=== PATIENT | female | born 2000 | race Hispanic/Latino ===

== ENCOUNTER 2018-05-13 20:44 | Emergency (ER) | payer OTHER, SELFPAY ==
--- NOTE | 2018-05-13 22:06 | RAD ---
PA AND LATERAL CHEST X-RAY: 05/13/18 HISTORY: Chest pain and back pain. Pain mainly with inspiration. FINDINGS: The cardiac silhouette and pulmonary vasculature are within normal limits. The lungs are clear. [place] us structures are intact. IMPRESSION: No acute cardiopulmonary process. POS: [facility]
== END 2018-05-13 22:34 | disposition home or self-care (01) ==
LOC: ERS 20:44
DX: M94.0 Chondrocostal junction syndrome [Tietze] (principal)
CPT/HCPCS: 71046; 93005

== ENCOUNTER 2018-09-08 14:56 | Outpatient (CLI) | payer OTHER ==
--- NOTE | 2018-09-08 16:16 | ULT ---
OBSTETRIC SONOGRAM: HISTORY: Second trimester gestation. evaluation. FINDINGS: Multiple transabdominal sonographic views of the gravid uterus show a single intrauterine gestation, in cephalic presentation. The cervix is closed and 3.3 cm. No gross intracranial abnormalities. Gr mina 0 placenta is posterior. Amniotic fluid is within normal limits. Four-chamber heart shows motio n at 165 beats per minute. spine and kidneys are intact, as visualized. Three-vessel cord frank ws a normal insertion. Measurements are as follow: BIPARIETAL DIAMETER: 20 weeks 6 days. HEAD CIRCUMFERENCE: 21 weeks 1 day. ABDOMINAL CIRCUMFERENCE: 21 weeks 1 day. FEMUR LENGTH: 21 weeks 0 days. Estimated date of delivery based on today's sonogram is 01/18/2019. [place] 9th percentile. IMPRESSION: Single viable intrauterine gestation with estimated gestational age based on today's sonogram of 21 w eeks 1 day. POS: [facility]
== END 2018-09-08 14:57 | disposition home or self-care (01) ==
LOC: BICULT 14:56
PROVIDERS: ATTEND Family Medicine
DX: Z34.82 Encounter for supervision of other normal pregnancy, second trimester (principal); Z3A.21 21 weeks gestation of pregnancy
CPT/HCPCS: 76805

== ENCOUNTER 2018-09-27 15:30 | Day surgery (SDC) | payer OTHER ==
[2018-09-27 16:01] VITALS: BP 107/62; TEMP 98.9
[2018-09-27 16:04] VITALS: BMI 28.7
--- NOTE | 2018-09-27 16:55 | PRG ---
DATE OF SERVICE: 09/27/2018 TIME OF SERVICE: 1615. PRESENTING COMPLAINT: Lower abdominal pressure and mild right-sided rib pain 48 to 72 hours, status post fall. HISTORY OF PRESENT ILLNESS: Ms. Morgan is a 17-year-old 2, para 1, at 24 weeks gestation by stated MARLENY. Antepartum record is not available on the unit. She reports that early on Friday, she fell and landed on her side without impacting her abdomen. She states she has some mild rib pain. She denies vaginal bleeding. She reports an active fetus. She reports mild suprapubic pressure at times. The patient reports she has had uncomplicated . 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 MEDICAL HISTORY: None. PAST SURGICAL HISTORY: Appendectomy. MEDICATIONS: vitamins. ALLERGIES: PENICILLIN. SOCIAL HISTORY: Denies tobacco, alcohol, or drug use. FAMILY HISTORY: Noncontributory. REVIEW OF SYSTEMS: Noncontributory. PHYSICAL EXAMINATION: GENERAL: female, in no acute distress. VITAL SIGNS: Blood pressure 110/72, pulse 85, respirations 18, temperature 98.6. HEENT: Within normal limits. LUNGS: Clear to auscultation bilaterally. HEART: Regular rate and rhythm. ABDOMEN: Soft and nontender. She has mild tenderness over the area of her ribs on her right, but no ecchymosis or bruising is noted. No CVA tenderness is noted. FHTs 140s. GENITALIA: Vulva without lesions. Vagina, discharge. Cervix, closed, long and high posterior. EXTREMITIES: No clubbing, cyanosis, or edema. heart rate tracing for greater than 20 minutes was carried out. One episode of uterine irritability was noted without palpable contraction. FHTs are 140s to 150s, positive acceleration, no deceleration and reactive strip would be anticipated at 24 weeks gestation. IMPRESSION: Discomforts of . No evidence of abruption. Status post fall. No evidence of labor. PLAN: Discharge home. Keep scheduled followup with Dr. Soni and CHERYL guillermo. Job ID: [id number]
== END 2018-09-27 16:28 | disposition home or self-care (01) ==
LOC: L&D/OP 15:30
PROVIDERS: ATTEND Family Medicine
DX: O99.89 Other specified diseases and conditions complicating pregnancy, childbirth and the puerperium (principal); R10.30 Lower abdominal pain, unspecified; R07.81 Pleurodynia; Z3A.24 24 weeks gestation of pregnancy; Z79.899 Other long term (current) drug therapy; Z88.0 Allergy status to penicillin; W19.XXXA Unspecified fall, initial encounter
CPT/HCPCS: 99282

== ENCOUNTER 2018-11-12 12:48 | Day surgery (SDC) | payer OTHER ==
[2018-11-12 13:43] VITALS: BMI 30.2
[2018-11-12 15:22] LABS: Bilirubin Negative (Negative); Blood, Urine Negative (Negative); Clarity CLEAR (Clear); Glucose, Urine (Dipstick) Negative (Negative); Leukocyte Negative (Negative); Nitrite Negative (Negative); Protein, Urine (Dipstick) Negative (Neg-Trace); pH, Urine 7.5 (5.0-9.0)
[2018-11-12 15:28] LABS: Bacteria/HPF None Seen HPF (None Seen); Hyaline Casts/LPF 0-3 HYALINE CAST LPF (0-3 Hyaline); Pathc Cast-AUWi Flag 0.13 (0-2.49); Squamous Epithelial 0-3 HPF (0-3); WBC/HPF 0-3 HPF (0-3)
--- NOTE | 2018-11-12 17:37 | PRG ---
DATE OF SERVICE: 11/12/2018 PRIMARY OB: Michael Soni MD CHIEF COMPLAINT: Abdominal pain. HISTORY OF PRESENT ILLNESS: The patient is a 18-year-old, G2, P1 female with an intrauterine at 31 weeks and 2 days, who is presenting with a 2-month history of abdominal pain that had worsened in the last few hours. The patient reports that the pain is worse with movement and activity such as getting out of bed and picking up her daughter. She reports as being in her lower pelvis bilaterally. She reports that since coming to the hospital, she has noticed some contractions, but is not the main reason for her presentation. The patient denies any change in discharge. She denies intercourse in the last few days. She denies any falls, any recent illness, or diarrhea. The patient denies fever, headache, chest pain, does report some difficulty taking deep breath with the . Reports some nausea. Denies vomiting. Denies constipation or diarrhea. Denies any new rashes, hip problems, knee problems, or muscle weakness. Denies vaginal bleeding or change in discharge. Denies urinary urgency or frequency. PAST MEDICAL HISTORY: Negative. PAST SURGICAL HISTORY: Negative. ALLERGIES: NO KNOWN DRUG ALLERGIES. SOCIAL HISTORY: Denies drug, alcohol, or tobacco use. PAST SURGICAL HISTORY: Appendectomy. ALLERGIES: PENICILLIN. OB LABS: Unavailable at time of discharge. REVIEW OF SYSTEMS: Per HPI, a 12-point review of systems was reviewed and pertinent positives are present there. PHYSICAL EXAMINATION: VITAL SIGNS: Blood pressure 101/64, heart rate of 86, respiratory rate of 16, saturating 98% on room air, temperature 98.7. GENERAL: She appears to be in no acute distress. She is alert, oriented, cooperative, and pleasant to interact with. HEAD: Normocephalic, atraumatic. LUNGS: Clear to auscultation bilaterally. HEART: Has regular rate and rhythm. ABDOMEN: Soft. She does have some mild tenderness to deviation of the uterus to the right in her lower pelvis, less so on her left. She has no CVA tenderness. Some mild SI tenderness on the left. EXTREMITIES: Nontender with mild edema. : Cervix is closed, thick, and high. DIAGNOSTIC DATA: heart tracing and NST performed for abdominal pain and baseline is noted to be in the 130s with moderate long-term variability with positive 15 x 15 accelerations, no decelerations. Tocometer shows some possible irritability with a single contraction present over approximately 2 hours. Urinalysis, negative for nitrites, negative for leukocyte esterase, negative for white blood cells, negative for squamous cells, negative for bacteria. ASSESSMENT AND PLAN: The patient is a 18-year-old female with an intrauterine at 31 weeks and 2 days, likely experiencing musculoskeletal pain of that have exacerbated in the last couple of hours. The patient does have a young child at home that she regularly carries and has responsibilities that likely are contributing to her discomfort. Reassurance has been given to the patient that while she may feel discomfort from this, she should not be worried about this as evidence of her going into labor. The patient's baby has a reactive NST and reassuring category 1 tracing. The patient is being discharged to home with instructions to follow up with her primary OB as scheduled. Job ID: [id number]
== END 2018-11-12 16:00 | disposition home or self-care (01) ==
LOC: L&D/OP 12:48
PROVIDERS: ATTEND Family Medicine
DX: O99.89 Other specified diseases and conditions complicating pregnancy, childbirth and the puerperium (principal); R10.9 Unspecified abdominal pain; Z3A.31 31 weeks gestation of pregnancy; Z88.0 Allergy status to penicillin
CPT/HCPCS: 81001; 99283

== ENCOUNTER 2019-01-07 19:15 | Inpatient (IN) | payer OTHER ==
[2019-01-07] MEDS ORDERED: Methylergonovine 0.2 MG/ML VIAL IM PRN (21:05)
[2019-01-07] MEDS ORDERED: HYDROcodone/Acetaminophen 5/325 mg Tablet PO PRN (21:05)
[2019-01-07] MEDS ORDERED: Diphenoxylate HCl/Atropine Tablet PO PRN (21:05)
[2019-01-07] MEDS ORDERED: Ondansetron PF 4 MG/2 ML Vial IVP PRN (21:05)
[2019-01-07] MEDS ORDERED: hydrALAZINE 20 MG/ML VIAL SLOW IVP PRN (21:05)
[2019-01-07] MEDS ORDERED: Lidocaine 1% (PF) 30 ML VIAL SC PRN (21:05)
[2019-01-07] MEDS ORDERED: Ibuprofen 800 MG TAB PO PRN (21:05)
[2019-01-07] MEDS ORDERED: NS / Oxytocin 40 units/1000ml 1,000 ML IV PRN (21:05)
[2019-01-07] MEDS ORDERED: Carboprost 250 MCG/ML AMP IM PRN (21:05)
[2019-01-07] MEDS ORDERED: Promethazine HCl 25 MG/ML VIAL IM PRN (21:05)
[2019-01-07] MEDS ORDERED: Butorphanol Tartrate 1 MG/ML VIAL SLOW IVP PRN (21:05)
[2019-01-07] MEDS ORDERED: Misoprostol 200 MCG TAB PR PRN (21:05)
[2019-01-07] MEDS ORDERED: CEFAZOLIN 2 GM in Premix Bag 1 BAG IVPB SCH (21:15)
[2019-01-07 21:23] VITALS: BMI 31.4
[2019-01-07] MEDS ORDERED: NS w/ Oxytocin 10 units 500 ML IV SCH (21:30)
[2019-01-07] MEDS: Lactated Ringer's 1,000 ML IV SCH (21:30)
[2019-01-07 21:45] LABS: Hemoglobin 10.6 g/dL (12.0-16.0); Mean Corpuscular Hemoglobin 26.9 pg (25.0-35.0); Mean Corpuscular Volume 79.2 fL (78.0-98.0); Mean Platelet Volume 7.9 fL (7.4-10.4); Platelet Count 294 thou/uL (130-400); Red Blood Cell (RBC) Count 3.95 mill/uL (4.00-5.20); White Blood Cell (WBC) Count 10.3 thou/uL (4.8-10.8)
[2019-01-07 23:35] LABS: Syphilis Antibody Nonreactive (Nonreactive); Syphilis Antibody Index 0.03 S/CO (<1.00 Non-Reactive)
[2019-01-08 00:02] LABS: HBSAg Index 0.23 S/CO (0-0.99); Hep B Surf Ag Non-Reactive S/CO (NonReactive)
[2019-01-08] MEDS: NS w/ Oxytocin 10 units 500 ML IV SCH ×2 (00:28→10:01)
[2019-01-08] MEDS: Misoprostol 100 MCG TAB PO SCH ×2 (00:29→04:30)
[2019-01-08] MEDS: Lactated Ringer's 1,000 ML IV SCH ×2 (05:21→09:30)
[2019-01-08] MEDS ORDERED: ceFAZolin 1 GM/D5W 1 GM in Premix Bag 1 BAG IVPB SCH (06:00)
[2019-01-08] MEDS ORDERED: CEFAZOLIN 1 GM in Sodium Chloride 0.9% 100 ML IVPB SCH (06:00)
[2019-01-08] MEDS ORDERED: Fentanyl 4 mcg/Bup 0.1% Cadd 100 ML ONE (08:17)
[2019-01-08] MEDS ORDERED: Promethazine HCl 25 MG/ML VIAL IM PRN ×2 (09:31→14:54)
[2019-01-08] MEDS ORDERED: Naloxone HCl 0.4 mg/ml Vial IVP PRN ×2 (09:31)
[2019-01-08] MEDS ORDERED: diphenhydrAMINE 50 MG/ML VIAL IVP PRN (09:31)
[2019-01-08] MEDS ORDERED: Lactated Ringer's 500 ML IV PRN (09:31)
[2019-01-08] MEDS ORDERED: Ondansetron PF 4 MG/2 ML Vial IVP PRN ×2 (09:31→14:54)
[2019-01-08] MEDS ORDERED: ePHEDrine/0.9% NaCl/PF SYRINGE 50 mg/10 ml SLOW IVP PRN (09:31)
[2019-01-08] MEDS ORDERED: Acetaminophen 325 MG TAB PO PRN (09:31)
[2019-01-08] MEDS ORDERED: Fentanyl 4 mcg/Bupivacaine 0.1% Cassette 100 ML EPIDURAL SCH (09:45)
[2019-01-08] MEDS ORDERED: Communication Order-Pharmacy FS SCH (09:45)
[2019-01-08] MEDS ORDERED: HYDROcodone/Acetaminophen 5/325 mg Tablet PO PRN ×2 (14:54)
[2019-01-08] MEDS ORDERED: Bisacodyl 10 MG SUPP PR PRN (14:54)
[2019-01-08] MEDS ORDERED: Benzocaine-Menthol 82.5 ML CAN TOP PRN (14:54)
[2019-01-08] MEDS ORDERED: Milk Of Magnesia 30 ML UDCUP PO PRN (14:54)
[2019-01-08] MEDS ORDERED: hydrALAZINE 20 MG/ML VIAL SLOW IVP PRN (14:54)
[2019-01-08] MEDS ORDERED: Lanolin Ointment 7 GM TUBE TOP PRN (14:54)
[2019-01-08] MEDS ORDERED: diphenhydrAMINE 25 MG CAP PO PRN (14:54)
[2019-01-08] MEDS ORDERED: NS / Oxytocin 40 units/1000ml 1,000 ML IV SCH (14:54)
[2019-01-08] MEDS ORDERED: NS / Oxytocin 40 units/1000ml 1,000 ML ONE (14:56)
[2019-01-08] MEDS: Ibuprofen 800 MG TAB PO SCH (16:12)
[2019-01-08] MEDS: Ferrous Sulfate 325 MG TAB PO SCH (18:54)
[2019-01-08] MEDS: Docusate Calcium (SURFAK) 240 MG CAP PO SCH (21:34)
[2019-01-09] MEDS: Ibuprofen 800 MG TAB PO SCH ×3 (01:21→13:47)
[2019-01-09 06:31] LABS: Hemoglobin 10.3 g/dL (12.0-16.0); Mean Corpuscular HGB CONC 33.4 g/dL (32.0-36.0); Mean Corpuscular Hemoglobin 26.8 pg (25.0-35.0); Mean Corpuscular Volume 80.1 fL (78.0-98.0); Mean Platelet Volume 8.1 fL (7.4-10.4); Platelet Count 280 thou/uL (130-400); RBC Distribution Width 13.2 % (11.5-14.5); Red Blood Cell (RBC) Count 3.84 mill/uL (4.00-5.20); White Blood Cell (WBC) Count 13.3 thou/uL (4.8-10.8)
[2019-01-09] MEDS ORDERED: Prenatal Vitamin 1 TAB PO SCH (09:00)
[2019-01-09] MEDS: Docusate Calcium (SURFAK) 240 MG CAP PO SCH (09:07)
[2019-01-09] MEDS: Ferrous Sulfate 325 MG TAB PO SCH (09:08)
[2019-01-09 11:31] VITALS: BP 107/72; TEMP 97.7
== END 2019-01-09 16:25 | disposition home or self-care (01) | DRG 807 ==
LOC: L&D 20:38 → 3SW 01-08 15:33
PROVIDERS: ADMIT Family Medicine; ATTEND Family Medicine
PROC: 10E0XZZ Delivery of Products of Conception, External Approach (ICD-10-PCS; principal; 2019-01-08)
PROC: 3E0P7VZ Introduction of Hormone into Female Reproductive, Via Natural or Artificial Opening (ICD-10-PCS; 2019-01-08)
DX: O99.824 Streptococcus B carrier state complicating childbirth (principal); Z37.0 Single live birth; O71.82 Other specified trauma to perineum and vulva; Z3A.39 39 weeks gestation of pregnancy
CPT/HCPCS: 36415; 51702; 85027; 86780; 86850; 86900; 86901; 87340; J0690; J2590; J3490

== ENCOUNTER 2019-01-31 19:03 | Inpatient (IN) | payer OTHER ==
--- NOTE | 2019-01-31 20:02 | RAD ---
1 view chest: CLINICAL HISTORY: Dizzy upon standing COMPARISON: 05/13/2018 FINDINGS: There is no focal consolidation, effusion, or pneumothorax. Cardiac silhouette is normal in size. No acute osseous abnormality. IMPRESSION: No focal consolidation.
[2019-01-31 20:06] LABS: Bacteria/HPF None Seen HPF (None Seen); Bilirubin Negative (Negative); Blood, Urine 2+ (Negative); Clarity Clear (Clear); Glucose, Urine (Dipstick) Normal (Negative); Leukocyte 500 Leu/uL (Negative); Mucous/LPF Rare LPF (<2+); Nitrite Negative (Negative); Protein, Urine (Dipstick) 10 mg/dL (Neg-Trace); Squamous Epithelial 0-3 HPF (0-3)
[2019-01-31] MEDS ORDERED: Ondansetron ODT 4 MG TAB ONE (20:07)
[2019-01-31] MEDS ORDERED: Meclizine HCl 25 MG TAB ONE (20:07)
[2019-01-31 20:26] LABS: #Eosinphils 0.1 thou/uL (0.0-0.7); #Lymphocytes 1.7 thou/uL (1.20-3.40); #Monocytes 0.6 thou/uL (0.11-0.59); #Neutrophils 5.6 thou/uL (1.40-6.50); %Basophils 0.5 % (0.0-1.0); %Eosinophils 1.3 % (0.0-10.0); %Lymphocytes 21.2 % (28.0-48.0); %Monocytes 7.4 % (0.0-4.0); %Neutrophils 69.7 % (31.0-61.0); Hemoglobin 12.1 g/dL (12.0-16.0); Mean Corpuscular HGB CONC 31.9 g/dL (32.0-36.0); Mean Corpuscular Hemoglobin 25.8 pg (25.0-35.0); Mean Corpuscular Volume 80.9 fL (78.0-98.0); Mean Platelet Volume 7.8 fL (7.4-10.4); Platelet Count 309 thou/uL (130-400); RBC Distribution Width 13.1 % (11.5-14.5); Red Blood Cell (RBC) Count 4.67 mill/uL (4.00-5.20)
[2019-01-31 20:35] LABS: BHCG - Serum Negative (NEGATIVE); Pregs Control Background? CLEAR/WHITE (CLR/WHITE); Pregs Control Bar Appear? YES (CONTROL BAR)
[2019-01-31 20:46] LABS: ALT (SGPT) 12 U/L (8-55); AST (SGOT) 20 U/L (5-34); Albumin 4.6 g/dL (3.5-5.0); Alkaline Phosphatase 83 U/L (40-150); Anion Gap 13 mmol/L (10-20); BUN (Urea Nitrogen) 12 mg/dL (7.0-18.7); Bilirubin, Total 0.3 mg/dL (0.2-1.2); Calc. Creatinine Clearance 0 mL/min (70-130); Calcium 9.6 mg/dL (7.8-10.44); Carbon Dioxide 25 mmol/L (22-29); Chloride 104 mmol/L (98-107); Estimated GFR-MDRD Greater than 90; Glucose 77 mg/dL (70-105); Potassium 3.4 mmol/L (3.5-5.1); Protein, Total 7.6 g/dL (6.0-8.3); Sodium 139 mmol/L (136-145)
[2019-01-31] MEDS ORDERED: Promethazine HCl 25 MG/ML VIAL ONE (21:03)
[2019-01-31] MEDS ORDERED: Ondansetron PF 4 MG/2 ML Vial ONE (21:51)
--- NOTE | 2019-01-31 22:59 | CT ---
CT Brain WO Con: 01/31/2019 10:18 PM CLINICAL HISTORY: Nystagmus, dizziness, vomiting. COMPARISON: None. FINDINGS: Hemorrhage: None. Ventricular system: Normal in size and morphology for the patient's age. Cerebral parenchyma: Normal Midline shift: None. Mass: No mass effect. Calvarium: Normal. Visualized Paranasal sinuses: Decreased pneumatization of right mastoid air cells. IMPRESSION: No acute intracranial abnormalities.
--- NOTE | 2019-02-01 00:02 | PDOC.FPRHP ---
- History of Present Illness Chief Complaint: Vertigo, Intractable Vomiting History of Present Illness: The patient is a 18 y/o HF who presents to the ED after ~12 hours of feeling like "the room is spinning". She states that she has difficulty with ambulation and feels unsteady on her feet. She has had continuous nausea during this time and has vomited +7 times. She admits to an unremarkable CRAWFORD on 01/30/19 , but denies any trauma, drug abuse, toxic exposures, recent travel, sick contacts or anyone else at home who has similar symptoms. Her symtoms are relieved by nothing. ED Course: The patient received 2 L of NS, 4 mg Zofran x2, Meclizine 25 mg, and IM Phenergan 25 mg in the ED. A Duane-Hallpike Maneuver was initially negative, but the patient subsequently developed vertical nystagmus at rest, prompting a Head CT scan which was negative. - Allergies/Adverse Reactions Allergies Allergy/AdvReac Type Severity Reaction Status Date / Time Penicillins Allergy Mild Rash Verified 01/07/19 21:17 - History PMHx: 2 PSHx: Appendectomy, Unspecified ABD Surgery for Ovarian Torsion FHx: None Social: Denies EtOH, Tobacco, and Drug Abuse - Review of Systems General: denies: fever/chills, weight/appetite/sleep changes, night sweats, fatigue Eyes: denies: vision changes Respiratory: denies: cough, shortness of breath Cardiovascular: denies: chest pain Gastrointestinal: reports: nausea, vomiting. denies: diarrhea, abdominal pain Genitourinary: denies: dysuria, discharge Neurological: reports: other (Unremarkable Headache on 01/30/19). denies: syncope, weakness Psychological: reports: other (Denies Suicidal / Homicidal Ideation) - Vital signs BP: [110/69] HR: [54] RR: [16] Tmax: [97.9] Pox: [99]% on [Room] Wt: [63 kg] - Physical Exam Constitutional: NAD, awake, alert and oriented HEENT: normocephalic and atraumatic, PERRLA, EOMI, conjunctiva clear, no scleral icterus, grossly normal vision, TM's clear and intact (Cone of Light visible anteriorly and inferiorly bilaterally), grossly normal hearing, MMM, other (Vertical Nystagmus at rest) -HEENT: Vertical Nystagmus at Rest Neck: supple, FROM, trachea midline, no LAD, no thyromegaly Chest: no-tender to palpation Heart: RRR, normal S1/S2, no murmurs/rubs/gallops, pulses present (+2 Pulses at Radial Artery (bilaterally)) Lungs: CTAB, no respiratory distress, good air movement, no rales/rhonchi, no wheezing, no retractions Musculoskeletal: normal structure, ROM grossly normal Neurological: no focal deficit, CN II-XII intact, normal sensation, other (5/5 Strength in all extremities. Good customer account representative bilaterally. Patient admits to tingling in RLE and had difficulty w/ [id number] Test. (-)Pronator Drift, (-) Dysdiadokinesia and (-)Babinski.) Skin: no rash/lesions, capillary refill <2 seconds, no jaundice Heme/Lymphatic: no unusual bruising or bleeding, no purpura, no LAD Psychiatric: normal mood and affect, intact recent and remote memory -Psychiatric: Denies Suicidal / Homicidal Ideation FMR H&P: Results - Labs Result Diagrams: 01/31/19 20:02 01/31/19 20:02 Lab results: WBC 8.0 thou/uL (4.8-10.8) 01/31/19 20:02 Hgb 12.1 g/dL (12.0-16.0) 01/31/19 20:02 Hct 37.8 % (36.0-47.0) 01/31/19 20:02 MCV 80.9 fL (78.0-98.0) 01/31/19 20:02 Plt Count 309 thou/uL (130-400) 01/31/19 20:02 Neutrophils % 69.7 % (31.0-61.0) H 01/31/19 20:02 Sodium 139 mmol/L (136-145) 01/31/19 20:02 Potassium 3.4 mmol/L (3.5-5.1) L 01/31/19 20:02 Chloride 104 mmol/L (98-107) 01/31/19 20:02 Carbon Dioxide 25 mmol/L (22-29) 01/31/19 20:02 BUN 12 mg/dL (7.0-18.7) 01/31/19 20:02 Creatinine 0.75 mg/dL (0.6-1.1) 01/31/19 20:02 Glucose 77 mg/dL (70-105) 01/31/19 20:02 Calcium 9.6 mg/dL (7.8-10.44) 01/31/19 20:02 Total Bilirubin 0.3 mg/dL (0.2-1.2) 01/31/19 20:02 AST 20 U/L (5-34) 01/31/19 20:02 ALT 12 U/L (8-55) 01/31/19 20:02 Alkaline Phosphatase 83 U/L (40-150) 01/31/19 20:02 Serum Total Protein 7.6 g/dL (6.0-8.3) 01/31/19 20:02 Albumin 4.6 g/dL (3.5-5.0) 01/31/19 20:02 Urine Ketones Trace mg/dL (Negative) A 01/31/19 19:37 Urine Blood 2+ (Negative) A 01/31/19 19:37 Urine Nitrite Negative (Negative) 01/31/19 19:37 Ur Leukocyte Esterase 500 Lc/uL (Negative) A 01/31/19 19:37 Urine RBC 11-20 HPF (0-3) A 01/31/19 19:37 Urine WBC 11-20 HPF (0-3) A 01/31/19 19:37 Ur Squamous Epith Cells 0-3 HPF (0-3) 01/31/19 19:37 Urine Bacteria None Seen HPF (None Seen) 01/31/19 19:37 FMR H&P: A/P - Problem List (1) Vertigo Current Visit: Yes Status: Acute Code(s): R42 - DIZZINESS AND GIDDINESS - Plan 1. Vertigo w/ Intractable Vomiting -NS 100 ml/hr -Zofran 4 mg IVP Q6H -Meclizine 25 mg PO Q8H PRN -SCDs for VTE Prophylaxis -Fall Precaution -Regular Diet as tolerated -Consider Neuro consult and additional imaging if condition deteriorates or does not improve within 12 hours Disposition: Observation for <2 midnights FMR H&P: Upper Level - Plan Date/Time: 01/31/19 6929 HPI: This is a 18 yo F being admitted for vertigo and intractable N/V. The patient states this started fairly suddenly sometime this afternoon, maybe 3pm. She states she feels like the room is spinning and whenever she moves her head it becomes worse. States she had a hearing loss on the R side for a short time but resolved. Denied tinnitus. She has vomited >5 times, mild red streaking. She has an unsteady gait. She has never had anything like this happen in the past. She does have a history of migraine headaches but states this does not feel like previous migraines. She had an uncomplicated vaginal delivery 1 mo ago. Denies PPH. Denies operative delivery. REVIEW OF SYSTEMS: Gen: no fever, chills, or sweats Neuro: see hpi, denies photophobia, denies phonophobia Eyes: no visual changes ENT: see hpi, no congestion Resp: no cough, no SOB, no wheeze Card: denies chest pain, no palpitations GI: no abdominal pain, no diarrhea : had an episode of burning with urination yesterday MSK: no myalgias, no joint pain/stiffness Skin: no rash, no erythema PHYSICAL EXAMINATION: General: NAD, alert and oriented x3 HEENT: PERRLA, EOMI, normal sclera, oropharynx without erythema or exudate, TMs clear bilaterally Neck: Supple. Full ROM. Heart/Cardiovascular System: RRR, Cap refill < 3 seconds, no rub, no murmur Lungs/Respiratory System: clear to auscultation bilaterally. No increased work of breathing. Room air. Abdomen/Gastro-Intestinal System: no abdominal tenderness, normal bowel sounds, no masses, no organomegaly Extremities: Warm extremities. No cyanosis or edema. Neuro: abnormal gait, when walking to door of room patient was unsteady and had to be supported multiple times, she was unable to walk in a straight line, heel to osuna normal, patient has horizontal nystagmus at rest, positive head thrust on the right, duane hallpike positive on the R, normal finger to nose test, customer account representative strength equal bilaterally, CN II-XII grossly intact Skin: No lesions, rashes, or ulcers Musculoskeletal: Full ROM A/P: # Vertigo 2/2 pure vestibular neuritis - No auditory disturbance currently, had one prior - able to walk but unsteady gait, - symptoms on R side, Positive head thrust test on the R - horizontal nystagmus - NO dysarthria, dysphagia, focal weakness, sensory loss or facial droop - UDS neg, bmp WNL - Will treat with methylprednisolone 60mg IV, transition to PO prednisone when tolerating PO, consider valacyclovir - Differential includes: Multiple sclerosis, Marta syndrome, Menieres, BPPV , vestibular migraine - Consider MRI and neurology consult in AM if symptoms not improved # UTI - Burning with urination yesterday, will treat with rocephin Fluids: NS 100 ml/hr Code status: full PPx: scd Dispo: pending clinical course
[2019-02-01 00:14] VITALS: BMI 27.3
[2019-02-01] MEDS ORDERED: Acetaminophen 325 MG TAB PO PRN (01:08)
[2019-02-01] MEDS ORDERED: Meclizine HCl 25 MG TAB PO PRN ×2 (01:12→08:40)
[2019-02-01 01:24] LABS: Amphetamine Not Detected (NotDetected); Barbiturates Screen Not Detected (NotDetected); Benzodiazepine Screen Not Detected (NotDetected); Cocaine Metabolite Screen Not Detected (NotDetected); Medtox Control Line Valid? VALID (VALID); Medtox Reader # READER 1; Methadone Not Detected (NotDetected); Methamphetamine Not Detected (NotDetected); Opiate Screen Not Detected (NotDetected); Oxycodone Screen Not Detected (NotDetected); Phencyclidine (PCP) Not Detected (NotDetected); THC/Cannabinoid Screen Not Detected (NotDetected); Tricyclic Screen Not Detected (NotDetected)
[2019-02-01] MEDS: Sodium Chloride 0.9% 1,000 ML IV SCH ×3 (01:24→23:07)
[2019-02-01] MEDS ORDERED: cefTRIAXone\\ROCEPHIN 1 GM in Sodium Chloride 0.9% 100 ML IVPB SCH ×2 (01:30→01:45)
[2019-02-01] MEDS ORDERED: Bacteriostatic Water 30 ML VIAL FS PRN (02:03)
[2019-02-01] MEDS ORDERED: methylPREDNISolone Sod Succ 40 MG VIAL IVP SCH (02:15)
[2019-02-01 05:55] LABS: #Lymphocytes 0.9 thou/uL (1.20-3.40); #Monocytes 0.1 thou/uL (0.11-0.59); #Neutrophils 8.4 thou/uL (1.40-6.50); %Eosinophils 0.1 % (0.0-10.0); %Lymphocytes 9.3 % (28.0-48.0); %Neutrophils 89.7 % (31.0-61.0); Hemoglobin 12.6 g/dL (12.0-16.0); Mean Corpuscular HGB CONC 32.2 g/dL (32.0-36.0); Mean Corpuscular Hemoglobin 25.9 pg (25.0-35.0); Mean Corpuscular Volume 80.6 fL (78.0-98.0); Mean Platelet Volume 7.8 fL (7.4-10.4); Platelet Count 326 thou/uL (130-400); RBC Distribution Width 13.3 % (11.5-14.5); Red Blood Cell (RBC) Count 4.85 mill/uL (4.00-5.20); White Blood Cell (WBC) Count 9.4 thou/uL (4.8-10.8)
[2019-02-01 06:09] LABS: Anion Gap 14 mmol/L (10-20); BUN (Urea Nitrogen) 8 mg/dL (7.0-18.7); Calc. Creatinine Clearance 136 mL/min (70-130); Calcium 8.9 mg/dL (7.8-10.44); Carbon Dioxide 21 mmol/L (22-29); Chloride 108 mmol/L (98-107); Estimated GFR-MDRD Greater than 90; Glucose 105 mg/dL (70-105); Potassium 3.8 mmol/L (3.5-5.1); Sodium 139 mmol/L (136-145)
[2019-02-01] MEDS: Ondansetron PF 4 MG/2 ML Vial IVP PRN ×2 (09:48→16:05)
--- NOTE | 2019-02-01 10:09 | PDOC.FM ---
- Subjective Subjective: Feels better overall all despite emesis x2 last night. no hematemsis, no dysuria. vertigo with movement but improved. no focal neuro deficits/focal weakness/focal paralysis - Objective MAR Reviewed: Yes Vital Signs & Weight: Vital Signs (12 hours) Temp Pulse Resp BP BP Pulse Ox 02/01/19 07:51 98.7 F 57 L 20 96/57 L 98 02/01/19 05:40 118/68 02/01/19 05:36 99/57 L 02/01/19 05:35 98/52 L 02/01/19 04:05 50 L 16 92/53 L 02/01/19 00:05 97.9 F 54 L 16 110/69 99 Weight Weight 63.503 kg I&O: 01/31/19 02/01/19 02/02/19 06:59 06:59 06:59 Intake Total 575 Output Total 700 Balance -125 Result Diagrams: 02/01/19 05:43 02/01/19 05:43 Phys Exam - Physical Examination Constitutional: NAD HEENT: PERRLA, moist MMs Respiratory: no wheezing, clear to auscultation bilateral Cardiovascular: RRR, no significant murmur Gastrointestinal: soft, non-tender Musculoskeletal: no edema Neurological: non-focal, moves all 4 limbs gaze dependent nystagmus Psychiatric: A&O x 3 Deviation from normal: flat affect Skin: no rash Dx/Plan (1) Vestibular neuritis Code(s): H81.20 - VESTIBULAR NEURONITIS, UNSPECIFIED EAR Status: Acute (2) Vertigo, central Code(s): H81.49 - VERTIGO OF CENTRAL ORIGIN, UNSPECIFIED EAR Status: Acute - Plan Plan: 18 yo ~2 weeks # Vertigo 2/2 pure vestibular neuritis, r/o central etiology -CT imaging neg for acute findings -exam w/ no FND however on admission vertical nystagmus-will get MRI -continue sxatic control with antiemetics and antihistamines -continue steroids -neuro consult/MRI if unimproving an pending MRI results #UTI -rocephin x1, continue if unable to tolerate po -can transition to PO bactrim/macrobid if can tolerate PO # - depression screening during this stay -routine care Fluids: NS 100 ml/hr Code status: full PPx: scd Dispo: pending clinical course
--- NOTE | 2019-02-01 12:18 | PRG ---
DATE OF SERVICE: 02/01/2019 SUBJECTIVE: Ms. Morgan is a 18-year-old female patient, who was admitted with profound vertigo as well as nausea, vomiting of sudden onset. In the midst of her exam, she had some episodes of vertical nystagmus, whereas at most of the other time, she had horizontal and rotary nystagmus. Vertical nystagmus is generally not indicative of a peripheral lesion and we should probably look further. I would suggest an MRI to further check out the brainstem and cerebellum. In the event clinically right now, she is stable. Her previous head CT was negative. Her CBC is normal with white count of 8000, hemoglobin 12.1, hematocrit 37.8. Her chemistries show sodium of 139, potassium 3.8, chloride 108, bicarb 21, BUN 8, creatinine 0.66. Urine tox screen is negative. Job ID: [id number]
--- NOTE | 2019-02-01 12:57 | HP ---
HISTORY OF PRESENT ILLNESS: I have examined the patient and read the H and P of Dr. Ad Andrade. I have discussed the case with him and agree with his assessment and plan. Briefly, Ms. Morgan is a 18-year-old female, who was admitted with 12 hours of profound vertigo with vomiting x7. She was also noted on her physical exam to have episodes of vertical nystagmus in addition to her horizontal nystagmus. In the event, she has been admitted for further workup and treatment. PHYSICAL EXAMINATION: VITAL SIGNS: Her blood pressure is 110/70, her heart rate is 54 and regular, and respirations 16. She is afebrile. Her room air pulse ox is 99%. GENERAL: She is awake, but not alert. She is drowsy, having had several dosages of meclizine and Phenergan for her nausea and vertigo. EAR, NOSE, AND THROAT: No erythema or exudate. She does has still some residual horizontal nystagmus. NECK: Supple. CARDIAC: Heart rhythm regular. No gallop or murmur noted. LUNGS: Clear. No rales or wheezes. NEUROLOGIC: There appears to be no current focal deficits. Somewhat difficult to evaluate because of her still present vertigo and somnolence due to medications. LABORATORY DATA: CBC; white count is 8000, hemoglobin 12.1, hematocrit 37.8 with an MCV of 80.9. Chemistries; sodium 139, potassium 3.4, chloride 104, bicarb 25, BUN 12, and creatinine 0.75. Urine tox screen negative. ASSESSMENT: Vertigo. COMMENT: I am concerned about the presence of vertical nystagmus, given that this is not usually found as a cause of peripheral vertigo. I think it would be reasonable to proceed with an MRI to get further evaluation of the posterior fossa and brainstem. Job ID: [id number]
--- NOTE | 2019-02-01 15:03 | MRI ---
Brain MRI with and without contrast: 02/01/2019 COMPARISON: None HISTORY: Gait instability, vertigo, nystatin is TECHNIQUE: Multiplanar sequence MR imaging of the brain obtained with and without contrast FINDINGS: The diffusion weighted imaging is unremarkable. The axial gradient echo imaging demonstrates no evidence for intracranial hemorrhage. There is minimal mucosal thickening involving the left maxillary sinus. Imaged paranasal sinuses and mastoid air cells appear grossly unremarkable otherwise. Arterial flow voids at the axial level of the skull base appear within normal limits on the T2-weight ed imaging. There is no midline shift, mass effect, or ventricular enlargement. There is no abnormal enhancement within the brain parenchyma. IMPRESSION: No acute findings.
[2019-02-01] MEDS ORDERED: Promethazine HCl 25 MG/ML VIAL IM/IV PRN (17:04)
[2019-02-02] MEDS: Meclizine HCl 25 MG TAB PO SCH ×3 (02:53→21:40)
[2019-02-02] MEDS ORDERED: predniSONE 20 MG TAB PO SCH (08:00)
[2019-02-02 08:03] LABS: Anion Gap 12 mmol/L (10-20); BUN (Urea Nitrogen) 8 mg/dL (7.0-18.7); Calc. Creatinine Clearance 125 mL/min (70-130); Calcium 8.7 mg/dL (7.8-10.44); Carbon Dioxide 23 mmol/L (22-29); Chloride 110 mmol/L (98-107); Estimated GFR-MDRD Greater than 90; Glucose 81 mg/dL (70-105); Magnesium 1.6 mg/dL (1.7-2.2); Potassium 3.6 mmol/L (3.5-5.1); Sodium 141 mmol/L (136-145)
[2019-02-02] MEDS ORDERED: methylPREDNISolone Sod Succ 40 MG VIAL IVP SCH (09:00)
[2019-02-02] MEDS: Sodium Chloride 0.9% 1,000 ML IV SCH (09:00)
--- NOTE | 2019-02-02 09:07 | PDOC.FM ---
- Subjective Subjective: No acute events overnight. Able to tolerate dinner. Reports minimal dizziness but some gait instability. hasn't tried walking since yesterday. Denies headache , spech slurring, focal wekaness, nausea. - Objective MAR Reviewed: Yes Vital Signs & Weight: Vital Signs (12 hours) Temp Pulse Resp BP BP Pulse Ox 02/02/19 07:59 97.8 F 48 L 16 91/54 L 98 02/02/19 04:47 98.2 F 56 L 16 90/52 L 02/02/19 00:20 98.3 F 82 16 96/50 L Weight Weight 63.503 kg I&O: 02/01/19 02/02/19 02/03/19 06:59 06:59 06:59 Intake Total 575 1250 Output Total 700 1500 300 Balance -125 -250 -300 Result Diagrams: 02/01/19 05:43 02/02/19 07:37 Phys Exam - Physical Examination Constitutional: NAD HEENT: PERRLA, moist MMs Neck: no nodes, full ROM Respiratory: no wheezing, clear to auscultation bilateral Cardiovascular: RRR, no significant murmur Neurological: non-focal, moves all 4 limbs vertical/left horizaontal nystagmus with upward gaze, left beating nystagmus with left and right cantrell gaze Dx/Plan (1) Vestibular neuritis Code(s): H81.20 - VESTIBULAR NEURONITIS, UNSPECIFIED EAR Status: Acute (2) Vertigo, central Code(s): H81.49 - VERTIGO OF CENTRAL ORIGIN, UNSPECIFIED EAR Status: Acute - Plan Plan: 18 yo ~2 weeks # Vertigo & nystagmus, mixed central & peripheral presentation -ddx: gaze evoked nystamus suggestive of perpiheral vestibular etiology - pure vestbiular neuritis. Vertigo provoked sxs elicited by positional changes suggestive of BPPV -CT imaging and MRI neg for acute findings -Clinically improved w/ meclizine & steroids- continue this -Will try walking today to see if has improved -Will discuss neurology consult in hospital vs. outpatient #UTI -rocephin x1, transition to 3 day course of bactrim since tolerating PO #Depression -Has been hospitalized at [facility] -Positive PHQ9, interested starting antidepressants -Will start & continue titration outpatient Fluids: SL Code status: full PPx: scd Dispo: If sxs improved likely D/C today
[2019-02-02] MEDS ORDERED: Sulfameth/Trimethoprim DS 800-160mg TAB PO SCH ×2 (09:30→10:00)
[2019-02-02] MEDS ORDERED: FLUoxetine HCl 20 MG CAP PO SCH (13:00)
--- NOTE | 2019-02-02 13:08 | PRG ---
DATE OF SERVICE: 02/02/2019 Ms. Morgan looks and feels much better this morning. Her MRI was negative. We will ask Dr. Ladd for an opinion given that she had some abnormal neurological findings initially in the event, clinically, she is improved on the meclizine. Job ID: [id number]
[2019-02-02] MEDS ORDERED: FLUoxetine HCl 10 MG CAP PO SCH (13:15)
[2019-02-02] MEDS ORDERED: Magnesium 2 GM/50 ML 2 GM in Premix Bag 1 BAG IVPB SCH (16:00)
[2019-02-02] MEDS ORDERED: Magnesium Chloride 64 MG TAB PO SCH ×2 (18:15→21:00)
--- NOTE | 2019-02-02 20:48 | CON ---
DATE OF CONSULTATION: 02/02/2019 CONSULTING PHYSICIAN: [facility]. IMPRESSION: Vestibular neuronitis. PLAN: 1. Prednisone 40 mg per day for 3 days. 2. Meclizine as needed. HISTORY OF PRESENT ILLNESS: Erick is a 18-year-old girl who came in with complaints of dizziness starting yesterday. It came in association with some left frontal headache. She is not having any tinnitus or hearing loss. She denies any history of similar symptoms. She was treated with Zofran, Phenergan, meclizine and reports at this point she is feeling better. She still gets some increased vertigo if she moves her head quickly. Since admission, her vital signs have been stable and she has been afebrile. She had an MRI of the brain, which was normal. No history of similar symptoms. No recent illness reported. ALLERGIES: NONE REPORTED. MEDICINES: None reported. FAMILY HISTORY: Noncontributory. SOCIAL HISTORY: Denies alcohol or drug use. REVIEW OF SYSTEMS: A 10-system review of systems is otherwise negative. PHYSICAL EXAMINATION: GENERAL: She is a healthy-appearing young woman, sitting at the bedside, in no distress. VITAL SIGNS: Stable, has been afebrile. HEENT: Pupils are equal and reactive. Conjunctivae are clear. Oropharynx is clear. NECK: Supple. NEUROLOGIC: She is alert and appropriate. Her speech is fluent and clear. Exam is nonfocal. SUMMARY: This is a young woman with acute persistent vertigo and some headache, likely secondary to a viral infection of the vestibular nerve. Steroids can be helpful in shortening the duration of the illness. She can follow up with ENT if she has any persistent problems. Job ID: [id number]
[2019-02-02] MEDS: Sulfameth/Trimethoprim DS 800-160mg TAB PO SCH (21:40)
--- NOTE | 2019-02-03 06:34 | PDOC.FM ---
- Subjective Subjective: Improvement in dizziness. Ready to go home. - Objective Vital Signs & Weight: Vital Signs (12 hours) Temp Pulse Resp BP Pulse Ox 02/03/19 00:05 16 02/02/19 19:45 98.6 F 93 16 103/55 L 98 Weight Weight 63.503 kg I&O: 02/01/19 02/02/19 02/03/19 06:59 06:59 06:59 Intake Total 575 1250 1440 Output Total 700 1500 300 Balance -125 -250 1140 Result Diagrams: 02/01/19 05:43 02/02/19 07:37 Phys Exam - Physical Examination Constitutional: NAD HEENT: PERRLA, moist MMs, sclera anicteric gaze dependent nystagmus Respiratory: no wheezing, clear to auscultation bilateral Cardiovascular: RRR, no significant murmur Neurological: non-focal, moves all 4 limbs Psychiatric: normal affect, A&O x 3 Dx/Plan (1) Vestibular neuritis Code(s): H81.20 - VESTIBULAR NEURONITIS, UNSPECIFIED EAR Status: Acute (2) Vertigo, central Code(s): H81.49 - VERTIGO OF CENTRAL ORIGIN, UNSPECIFIED EAR Status: Acute - Plan Plan: 18 yo ~2 weeks here for vertigo/nystagmus # Pure vestibular neuritis -CT imaging and MRI neg for acute findings -HINTS exam: positive head thrust test, gaze dependent nystagmus, negative skew -overall no FND -Clinically improved w/ meclizine & steroids- continue this -Will try walking today to see if has improved -Neuro recs: 3 day steroid course, meclizine PRN #UTI -rocephin x1, transition to 3 day course of bactrim since tolerating PO #Depression -Has been hospitalized at [facility] -Positive PHQ9, started prozac -Continue outpt titratio and f/u Fluids: SL Code status: full PPx: scd Dispo: d/c today pending clinical course Discussed w/ Dr. Hinton
[2019-02-03] MEDS ORDERED: predniSONE 20 MG TAB PO SCH ×2 (08:00)
[2019-02-03] MEDS: Meclizine HCl 25 MG TAB PO SCH (08:51)
[2019-02-03] MEDS: Sulfameth/Trimethoprim DS 800-160mg TAB PO SCH (08:51)
[2019-02-03] MEDS ORDERED: FLUoxetine HCl 10 MG CAP PO SCH (09:00)
[2019-02-03 12:09] VITALS: BP 93/55; TEMP 98.5
--- NOTE | 2019-02-03 12:27 | PRG ---
DATE OF SERVICE: 02/03/2019 Ms. Morgan looks and feels much better this morning. She was seen in consultation by Dr. Olmstead, who felt this was a vestibular neuritis. He recommended continuing the prednisone and meclizine. She will be discharged later today to complete these medications. She can follow up with us or ENT depending on severity of symptoms, which as stated above were now much improved. Job ID: [id number]
--- NOTE | 2019-02-03 22:55 | DIS ---
DATE OF ADMISSION: 01/31/2019 DATE OF DISCHARGE: 02/03/2019 ADMITTING ATTENDING: Sukhi Lee MD DISCHARGE ATTENDING: Sukhi Lee MD. RESIDENT: Eufemia Elizabeth, PGY-1. IMAGING AND PROCEDURES: 1. Brain CT: No acute intracranial abnormalities. 2. Brain MRI: No acute findings. CONSULTS: Neurology, Dr. Terrance Olmstead. PRIMARY DIAGNOSES: 1. Vestibular neuronitis. 2. Uncomplicated urinary tract infection. 3. Depression. SECONDARY DIAGNOSES: 1. Two weeks . 2. History of depression requiring hospitalization. DISCHARGE MEDICATIONS: 1. Meclizine 50 mg p.o. daily p.r.n. for dizziness. 2. Prednisone 40 mg p.o. q.a.m. with meal for two more days. 3. Bactrim 1 tab p.o. b.i.d. for two more days. 4. Prozac 10 mg p.o. daily. DISCONTINUED MEDICATIONS: None. HISTORY OF PRESENT ILLNESS/HOSPITAL COURSE: Ms. Erick Morgan is a 18-year-old, 2-week female who presented to the ER for vertigo and persistent nausea and vomiting. She had presence of vertical nystagmus on physical exam, prompting a CT imaging which was negative. She was admitted to our service for persistent vertigo and further workup of the symptoms. Physical exam producing mixed picture of central versus peripheral vertigo. This included positive head press tests, gaze dependent nystagmus. Negative skew test. Because of this, MRI was obtained which was negative for any type of acute stroke. She had no focal neurologic deficits. The patient's symptoms improved with antiemetics and meclizine. Neurology was consulted who agreed with the diagnosis of vestibular neuronitis. She was initially started on a prednisone course for completion of a 6-day course. In addition, she presented with dysuria and was found to have an uncomplicated UTI. She will continue to receive a 3-day course of Bactrim. Lastly, the patient has a history of depression in which she had admitted having depressive symptoms. She was started on Prozac with instructions to continue outpatient titration. Overall cause of vestibular neuronitis was thought to be postinflammatory versus postviral. UDS was negative for any type of substance abuse. She had no other neurologic deficits to suggest multiple sclerosis, however, it is important to consider that should symptoms worsen or progress to consider this in the diagnosis. DISCHARGE CONDITION: Stable. DISCHARGE INSTRUCTIONS: 1. Location: Home. 2. Diet: Regular diet. 3. Activity: Ad darryl as tolerated. FOLLOWUP: 1. Please follow up to establish care at [facility] with Dr. Eufemia Elizabeth in 3 to 5 days. 2. If symptoms do not improve, please see ENT. 3. Please follow up for continued titration of Prozac. 4. Please finish antibiotic course for UTI. Job ID: [id number]
== END 2019-02-03 13:00 | disposition home or self-care (01) | DRG 776 ==
LOC: ERS 19:03 → OBSVTOIN 23:57 → 3SE 23:57
PROVIDERS: ADMIT Emergency Medicine; ATTEND Emergency Medicine
DX: O90.89 Other complications of the puerperium, not elsewhere classified (principal); N39.0 Urinary tract infection, site not specified; H93.3X1 Disorders of right acoustic nerve; G43.909 Migraine, unspecified, not intractable, without status migrainosus; H81.41 Vertigo of central origin, right ear; E83.42 Hypomagnesemia; F53.0 Postpartum depression; O99.345 Other mental disorders complicating the puerperium; Z88.0 Allergy status to penicillin; Z90.49 Acquired absence of other specified parts of digestive tract
CPT/HCPCS: 36415; 70450; 70553; 71045; 80048; 80053; 80306; 81003; 81015; 83735; 84703; 85025; 87086; 93005; 96361; 96372; 96374; J0696; J2405; J2550; J2920; J3475; J3490; J7512; J8597; Q0162